=== PATIENT | female | born 1950 | race Caucasian/White ===

== ENCOUNTER → 2018-11-15 | Outpatient (CLI) | payer OTHER ==
[~2018-11-15] MED LIST: CYMBALTA; PREMPRO 0.625/21 TAB PO; XANAX2 MG PO
== END ==
LOC: MC.RAD 09:44
DX: Z12.31 Encounter for screening mammogram for malignant neoplasm of breast (principal); Z98.890 Other specified postprocedural states

== ENCOUNTER 2022-02-19 10:30 | Outpatient (RCR) | payer OTHER | END 2022-02-21 | disposition home or self-care (01) | LOC: WSC → WSPT 03-19 09:45 | DX: M54.9 Dorsalgia, unspecified (principal); R53.1 Weakness; Z91.89 Other specified personal risk factors, not elsewhere classified ==

== ENCOUNTER 2022-06-19 11:39 | Day surgery (SDC) | payer OTHER ==
[~2022-06-19] VITALS: Ht 172.7 cm; Wt 75.5 kg
[2022-06-19] MEDS ORDERED: NAPROSYN500 MG PO (12:18)
[2022-06-19] MEDS ORDERED: SAVELLA100 MG PO (12:27)
[2022-06-19] MEDS ORDERED: XELJANZ XR22 MG PO (12:28)
[2022-06-19] MEDS ORDERED: KEVEYIS50 MG PO (12:29)
[2022-06-19] MEDS ORDERED: COZAAR 50MG50 MG/TAB PO (12:29)
[2022-06-19 13:30] VITALS: BP 138/71; PULSE 86; TEMP 99
[2022-06-19 13:45] VITALS: BP 136/68; PULSE 91
[2022-06-19 13:49] VITALS: BP 138/87; PULSE 98; TEMP 97.5
[2022-06-19 14:00] VITALS: BP 135/70; PULSE 89
--- NOTE | 2022-06-19 16:43 | NUR ---
[id number]: PT TO RECOVERY BAY 1 FROM ENDO DOMO S/P COLONOSCOPY ASSISTED TO CHAIR, STEADY GAIT, DENIES COMPLAINT A&O, PLACED ON MONITOR, VSS ON RA RECEIVED REPORT AND ASSUMED CARE OF PT FROM CHERI KLEVER SON BROUGHT TO BEDSIDE PROVIDED FOOD/FLUIDS, TOLERATING WELL MD IN TO SPEAK WITH PT POST-PROCEDURE PT HAS REMAINED A&O, NAD, VSS ON RA, TOLERATING PO, IS WITHOUT SIGNIFICANT COMPLAINT, WITH STEADY GAIT THRU OUT STAY IV D/C'D. D/C INSTRUCTIONS, ANY FOLLOW UP REVIEWED AND HANDED TO PT. ALL QUESTIONS AND CONCERNS ADDRESSED TO PT SATISFACTION. TAKEN TO EXIT VIA W/C WITH ALL BELONGINGS AND PAPERWORK IN HAND, ASSISTED INTO PASSENGER SEAT OF POV. SON TO DRIVE HOME.
== END 2022-06-19 14:15 | disposition home or self-care (01) ==
LOC: SDCO 11:39
DX: K58.2 Mixed irritable bowel syndrome (principal); K57.30 Diverticulosis of large intestine without perforation or abscess without bleeding; Z86.010 Personal history of colon polyps
CPT/HCPCS: J2704; J7120

== ENCOUNTER 2022-10-21 14:15 | Outpatient (RCR) | payer OTHER ==
[~2022-10-21 14:15] MED LIST changes: +COZAAR 50MG50 MG/TAB PO; +KEVEYIS50 MG PO; +NAPROSYN500 MG PO; +SAVELLA100 MG PO; +XELJANZ XR22 MG PO
== END 2022-10-22 | disposition home or self-care (01) ==
LOC: WSPT
DX: M79.604 Pain in right leg (principal); M25.551 Pain in right hip

== ENCOUNTER 2022-11-19 14:15 | Outpatient (RCR) | payer OTHER | END 2022-11-21 | disposition home or self-care (01) | LOC: WSPT | DX: M79.604 Pain in right leg (principal) ==

== ENCOUNTER 2023-02-18 11:15 | Outpatient (RCR) | payer OTHER | END 2023-02-21 | disposition home or self-care (01) | LOC: WSPT | DX: M25.551 Pain in right hip (principal) ==

== ENCOUNTER → 2023-03-24 | Outpatient (RCR) | payer OTHER | END | disposition home or self-care (01) | LOC: WSPT | DX: M25.551 Pain in right hip (principal) ==